=== PATIENT | female | born 1950 | race Caucasian/White ===

== ENCOUNTER 2019-12-24 14:02 | Emergency (ER) | payer OTHER, SELFPAY ==
[2019-12-24 14:12] VITALS: BP 226/125; PULSE 82; RESP 22; TEMP 36.3; O2SAT 98
--- NOTE | 2019-12-24 14:49 | ED.SKABFB ---
HPI - Skin/Abscess/Foreign Bdy General Chief complaint: Skin/Abscess/Foreign Body Stated complaint: back pain with rash? Time Seen by Provider: 12/24/19 14:12 Source: patient Mode of arrival: ambulatory Limitations: no limitations History of Present Illness HPI narrative: A 69 y/o female presents to the ED with c/o burning rash. Pt states that on 12/22/19 she started to get a red bumpy rash on her right lower back. She notes that she took Benadryl and Aleve with no relief and that the rash has been progressively worsening. Pt reports body aches and back pain, but denies fever, CP, dizziness, and chills. She denies having these types of symptoms before. Pt has no other complaints at this time. complaint: rash Onset (ago): day(s) (2) Location: back (Right lower) Pain Consistency: other (Progressively worsening) Relieving factors: none Associated symptoms: other (Body aches, back pain) Treatments prior to arrival: Benadryl and other (Aleve) Related Data Allergies Allergy/AdvReac Type Severity Reaction Status Date / Time No Known Allergies Allergy Verified 12/24/19 14:19 Review of Systems Review of Systems: All systems reviewed & are unremarkable except as noted in HPI and below Constitutional: Constitutional: Reports body ache(s), Denies chills and Denies fever(s) Cardiovascular: Cardiovascular: Denies chest pain Musculoskeletal: Musculoskeletal: Reports back pain Integumentary/Breasts: Skin/Breast: Reports rash (Right lower back) Neurologic: Denies dizziness PMFSH Past Medical History Medical History (Updated 12/24/19 @ 15:11 by Deejay Cooper MD) Bronchitis Endometriosis HTN (hypertension) Hyperlipidemia Surgical History Surgical History (Updated 12/24/19 @ 14:53 by Anjali Weems) History of hysterectomy Family History Family History Mother Family history of liver disease Family history of heart disease in male family member before age 55 Father Carcinoma of colon Family history of heart disease in male family member before age 55 Sibling Family history of heart disease in male family member before age 55 Social History Social History (Updated 12/24/19 @ 14:54 by Anjali Weems) Smoking packs per day: 2 Smoking cigarettes per day: 40.0 Years smoked: 30 Smoking pack-years: 60.00 Smoking status: Former smoker Second hand tobacco smoke exposure: No Smoking end date: 11/13/94 Alcohol intake: current Gender identity (if verbalized by the patient): Female Exam Narrative: Exam Narrative: GENERAL: Well-appearing, well-nourished, and in no acute distress. HEAD: Normocephalic, atraumatic. EXTREMITIES: Normal range of motion. Normal strength. SKIN: Warm, dry, shingles left back at level of T10. Vesicles/ulcerations noted. No abdominal wall involvement. NEURO: Alert and oriented x3. PSYCH: Normal mood and affect. Course Course Emergency Course: BP recheck 170's over 74. D/c home with valtrex. F/u with PCP. Vital Signs Vital signs: Vital Signs Temperature 97.4 F L 12/24/19 14:12 Pulse Rate 82 12/24/19 14:12 Respiratory Rate 22 H 12/24/19 14:12 Blood Pressure 226/125 H 12/24/19 14:12 Pulse Oximetry 98 12/24/19 14:12 Temperature 97.4 F L 12/24/19 14:12 Pulse Rate 82 12/24/19 14:12 Respiratory Rate 22 H 12/24/19 14:12 Blood Pressure 226/125 H 12/24/19 14:12 Pulse Oximetry 98 12/24/19 14:12 Discharge Plan Discharge Clinical Impression: Herpes zoster Qualifiers: Herpes zoster complications: without complications Qualified Code(s): B02.9 - Zoster without complications Patient Disposition: Home, Self-Care Condition: Stable Instructions: Shingles (ED) Additional Instructions: Return the ER if you have chest pain or shortness of breath, you cannot keep down food or water, you lose consciousness, you have additional concerns. Prescriptions: New valacyclovir [Valtrex] 1 gram tab
[2019-12-24 14:57] VITALS: BP 174/74; PULSE 70
== END 2019-12-24 15:20 | disposition home or self-care (01) ==
PROVIDERS: Emergency Provider Emergency Medicine; PCP Family Medicine
DX: B02.9 Zoster without complications (principal); N80.9 Endometriosis, unspecified; I10 Essential (primary) hypertension; E78.5 Hyperlipidemia, unspecified; F17.210 Nicotine dependence, cigarettes, uncomplicated
CPT/HCPCS: 99283

== ENCOUNTER 2021-08-30 09:01 | Emergency (ER) | payer OTHER, SELFPAY ==
[2021-08-30 09:15] VITALS: BP 144/96; PULSE 83; RESP 18; TEMP 35.7; O2SAT 98
--- NOTE | 2021-08-30 09:30 | ED.EAR ---
HPI - Ear Problem General Chief complaint: Ear Stated complaint: Ear Pain Time Seen by Provider: 08/30/21 09:30 Source: patient and RN notes reviewed Mode of arrival: ambulatory Limitations: no limitations History of Present Illness HPI Narrative: 71-year-old female presents to the [facility] with complaints of right ear pain. Has had chest congestion and sinus congestion. Last week called her in a Z-Silvio and she just finished it. Was told to take Mucinex but states it just does not for me. Patient states that she normally gets a Z-Silvio and Robitussin with codeine and it clears her symptoms right up. Patient in no acute distress. Denies fevers. Denies chest pain or abdominal pain. MD Complaint: ear pain Related Data Home Medications Medication Instructions Recorded Confirmed loratadine 10 mg tablet 10 mg PO DAILY PRN 05/10/21 08/30/21 Allergies Allergy/AdvReac Type Severity Reaction Status Date / Time No Known Allergies Allergy Verified 08/30/21 09:23 Review of Systems Review of Systems: All systems reviewed & are unremarkable except as noted in HPI and below Constitutional: Constitutional: Reports no additional constitutional complaints, Denies chills and Denies fever(s) Eyes: Eyes: Reports no additional eye complaints ENT: Reports as per HPI and Reports nasal congestion Respiratory: Respiratory: Reports as per HPI, Reports cough, Denies dyspnea and Denies wheezing Gastrointestinal: Gastrointestinal: Denies abdominal pain and Denies nausea Musculoskeletal: Musculoskeletal: Reports no additional musculoskeletal complaints Integumentary/Breasts: Skin/Breast: Reports system reviewed and no additional complaints, except as docu Neurologic: Reports system reviewed and no additional complaints, except as documented Psychiatric: Psychiatric: Reports no additional psychiatric complaints Allergic/Immunologic: Allergic/Immunologic: Reports no additional allergic/immunologic complaints [facility] Past Medical History Medical History (Updated 08/30/21 @ 09:53 by Nathalia Olvera) Bronchitis Chronic back pain Cough in adult Endometriosis Environmental allergies Eustachian tube dysfunction HTN (hypertension) Hyperlipidemia Osteoarthritis Shingles Surgical History Surgical History History of hysterectomy 1980s Family History Family History Mother Family history of liver disease Family history of heart disease in male family member before age 55 Father Carcinoma of colon Family history of heart disease in male family member before age 55 Sibling Family history of heart disease in male family member before age 55 Grandparent Cancer Sibling Cancer Social History Social History Smoking packs per day: 2 Smoking cigarettes per day: 40.0 Years smoked: 30 Smoking pack-years: 60.00 Smoking status: Former smoker Second hand tobacco smoke exposure: No Smoking end date: 11/13/89 Alcohol intake: never Substance use: never Gender identity (if verbalized by the patient): Female Comments My past Exam Const: General: healthy appearing, no acute distress and alert Nutritional Appearance: well nourished and obese Orientation/consciousness: patient oriented x3 Limitations: no limitations HENMT: Head: normal to inspection Ears: hearing grossly normal bilaterally, external ears normal, EAC's normal and TM abnormal with fluid behind the TM bilateral; not erythematous General nose exam: Abnormal mucous membranes and turbinates present boggy; not erythematous and Nasal discharge present clear Face and sinus: normal facial exam Mouth: Yes Normal oral and palatal mucosa present Throat: posterior oropharynx normal and uvula midline Eyes: Conjunctivae: conjunctivae normal Pupils: Equal, round and reactive pupils present
== END 2021-08-30 09:59 | disposition home or self-care (01) ==
PROVIDERS: Emergency Provider Nurse Practitioner; PCP Family Medicine
DX: R09.82 Postnasal drip (principal); H65.01 Acute serous otitis media, right ear; J01.10 Acute frontal sinusitis, unspecified; F17.210 Nicotine dependence, cigarettes, uncomplicated; N80.9 Endometriosis, unspecified; I10 Essential (primary) hypertension; M19.90 Unspecified osteoarthritis, unspecified site; E78.5 Hyperlipidemia, unspecified
CPT/HCPCS: 99213; G0463